=== PATIENT | male | born 1960 | race Caucasian/White ===

== ENCOUNTER 2016-08-10 15:29 | Emergency (ER) | payer MEDICARE, OTHER ==
[2016-08-10 16:03] LABS: Hematocrit 33.6 % (42.0-52.0); Hemoglobin 11.1 gm/dL (13.5-18.0); Mean Cell Volume 91.8 fl (78-100); Mean Corpuscular Hemoglobin 30.3 pg (27-31); Neutrophil # 4.6 K/mm3 (1.3-6.0); Neutrophil % 60.3 % (42-75.0); Platelet Count 148 K/mm3 (150-450); Red Blood Count 3.66 M/mm3 (4.7-6.0); Red Cell Distribution Width 14.1 % (11.5-14.0); White Blood Count 7.6 K/mm3 (4.0-10.5)
[2016-08-10 16:12] LABS: Prothrombin Time (Patient) 10.8 Seconds (9.4-11.4)
[2016-08-10 16:14] LABS: INR 1.04 INR (0.90-1.10); Partial Thrombolplastin Time 28.7 Seconds (24-32)
[2016-08-10] MEDS ORDERED: ACETAMINOPHEN 500 MG TABLET PO ONE (16:14)
--- NOTE | 2016-08-10 16:15 | ERNOTE ---
Chest Pain/Cardiac HPI Chief Complaint: Chest Pain Time Seen by Provider: 08/10/16 16:00 Source: patient Exam Limitations: no limitations Immunizations: IMMUNIZATION HX Immunizations Up to Date Yes History of Influenza Vaccine No Hx Pneumococcal Vaccination No Allergies/Adverse Reactions: Allergies No Known Allergies Allergy (Verified 08/10/16 15:37) Home Medications: HOME MEDICATIONS Acetaminophen [Tylenol] 1,000 mg PO Q6H PRN 05/05/16 [Last Taken Unknown] Albuterol Sulfate/Ipratropium [Duoneb 2.5-0.5MG/3ML Soln] 3 ml IH QID PRN [Last Taken Unknown] Allopurinol [Zyloprim] 200 mg PO DAILY 05/05/16 [Last Taken Unknown] Aspirin [Aspirin Enteric Coated] 325 mg PO DAILY 05/05/16 [Last Taken Unknown] Cholecalciferol (Vitamin D3) [Vitamin D3] 2,000 unit PO DAILY 05/05/16 [Last Taken Unknown] Ezetimibe [Zetia] 10 mg PO DAILY 05/05/16 [Last Taken Unknown] Famotidine 20 mg PO BID 05/05/16 [Last Taken Unknown] Hydrophilic Ointment [Aquaphilic Ointment] 1 appl TP DAILY 05/05/16 [Last Taken Unknown] Insul NPH Hu Rec/Ins Rg Hu Rec [Novolin 70/30] 40 units SQ QAM 05/05/16 [Last Taken Unknown] Insul NPH Hu Rec/Ins Rg Hu Rec [Novolin 70/30] 40 units SQ QPM 05/05/16 [Last Taken Unknown] Lisinopril [Zestril] 40 mg PO DAILY 05/05/16 [Last Taken Unknown] Metoprolol Tartrate [Lopressor] 200 mg PO BID 05/05/16 [Last Taken Unknown] Multivitamins [Multivitamin Rika] 1 cap PO DAILY 05/05/16 [Last Taken Unknown] Mupirocin [Bactroban] 1 appl TP DAILY 05/05/16 [Last Taken Unknown] Nystatin [Mycostatin Powder] 1 appl TP BID 05/05/16 [Last Taken Unknown] Ranitidine HCl [Zantac] 150 mg PO BID 05/05/16 [Last Taken Unknown] buPROPion HCL [Wellbutrin Xl] 150 mg PO DAILY 10/18/16 [Last Taken Unknown] guaiFENesin [Mucinex] 600 mg PO BID PRN 05/05/16 [Last Taken Unknown] Furosemide [Lasix] 80 mg PO DAILY #30 tablet 05/06/16 [Last Taken Unknown] Narrative: Patient started to have chest pain yesterday, describes the pain as lower sternal and on right lower ribs anteriorly, worse with deep breath and movement , no radiation, no other associated symptoms, denies any injury or significant cough. The patient has an extensive past medical history and was hospitalized a couple of months ago to CHF Date (Duration): 08/09/16 Time (Timing): 16:00 Timing: constant Severity/Quality: sharp Location: central Chest Pain Radiation: no radiation Activities at Onset: none Modifying Factors - Improves: Present: rest Modifying Factors - Worsens: Present: breathing, movement Nitro Today/Relief: no nitro taken today Aspirin Treatment Today: 325 mg x 1 Associated Symptoms: Absent: headache, dizziness, shortness of breath, diaphoresis, fever/chills, heartburn Review of Systems - Review of Systems Constitutional: Absent: recent illness, fever ENT: Absent: pulling on ears Respiratory: Absent: shortness of breath Cardiology: Present: See HPI Gastrointestinal/Abdominal: Absent: nausea, vomiting, diarrhea Musculoskeletal: Present: no symptoms reported Neurological: Absent: headache - Patient's Past Medical History Patient History - Medical: Diabetes Type 2, Depression, GERD, Obesity, Renal Disease Patient History - Cardiac/Respiratory: CHF, COPD, Hypertension, Hyperlipidemia, CPAP/BiPAP Home Use - needs refit, Sleep Apnea Patient History - Cancer: No Hx of Cancer Patient History - Surgical Procedures: Total Knee Replacement - Family History Mother Family History - Medical: , Diabetes Type 2 Family History - Cardiac/Respiratory: CVA/Stroke, Myocardial Infarction Father Family History - Medical: Family History - Cardiac/Respiratory: Coronary Heart Disease, Myocardial Infarction Sister Family History - Medical: Diabetes Type 2 Insulin Dependent Family History - Cardiac/Respiratory: Other Brother Family History - Cardiac/Respiratory: Myocardial Infarction - Social History Living Situations: alone Does anyone smoke in the home?: No Alcohol Use: none Drug Use: none Physical Exam - Physical Exam General Appearance: Present: wd/wn, alert, no apparent distress, obese - morbidly Eye Exam: Normal inspection: bilateral Ears, Nose, Throat: Present: normal ENT inspection Respiratory: Present: no respiratory distress, normal breath sounds, lungs clear , chest tenderness - parasternal and right anterior lower ribs Cardiovascular/Chest: Present: regular rate, rhythm, no murmur Gastrointestinal/Abdominal: Present: normal bowel sounds, nontender, nondistended, soft Extremity Exam: Present: other - chronic stasis dermatitis and edema Neurological Exam: Present: alert, oriented, normal mood/affect Skin Exam: Present: normal color, warm/dry ED Progress - Results and Orders Patient's Lab Results:: I have reviewed the patient's lab results. - Vital Signs Patient's Vital Signs:: I have reviewed the patient's vital signs. Vital Signs: Vital Signs 08/10/16 08/10/16 15:32 15:39 Pulse Rate 51 L 51 L Respiratory 13 10 L Rate O2 Sat by Pulse 97 Oximetry - EKG EKG: NSR - sinusbrady, no acute changes EKG read: Interp. by me - X-Ray X-Ray #1 X-Ray: chest - chronic stable changes Interpretation: Reviewed by me - Progress/Reassessment Chief Complaint: Chest Pain Progress Note-Subjective: 08/10/16 16:43 pain better, discussed results and need for close follow up as worsening renal failure Departure - Departure Clinical Impression: Acute chest wall pain, Acute on chronic renal failure Disposition: Home self-care Condition: Fair Instructions: Chest Wall Pain, [id number], Chronic Kidney Disease, Easy-to- Read Additional Instructions: stop the lasix have your blood work rechecked in two days Referrals: Katiuska Montoya DO [Staff Physician] - 08/17/16 10:45 am
[2016-08-10 16:20] LABS: ALT 37 U/L (19-67); AST 17 U/L (0-48); Albumin * 3.1 gm/dl (3.4-5.0); Alkaline Phosphatase * 109 U/L (50-170); Anion Gap 15.9 mmol/L (6.8-13.8); BUN/Creatinine Ratio 28.9 (9.0-21.6); Bilirubin, Total 0.4 mg/dL (0.0-1.1); Ca. Corrected For Albumin 9.4 mg/dL (8.4-10.2); Carbon Dioxide 23.8 mmol/L (24-32.6); Chloride 103 mmol/L (97-106); Glucose * 81 mg/dL (70-110); Potassium 4.7 mmol/L (3.4-4.6); Sodium 138 mmol/L (132-142); Total Protein 7.4 gm/dL (6.2-8.2)
[2016-08-10 16:24] LABS: Blood Urea Nitrogen 103 mg/dL (6-23)
[2016-08-10 16:25] LABS: Troponin I Less than 0.017 ng/ml (0.00-0.10)
[2016-08-10 16:32] VITALS: BP 177/84
== END 2016-08-10 17:10 | disposition home or self-care (01) ==
LOC: ER 15:29
DX: R07.89 Other chest pain (principal); N17.9 Acute kidney failure, unspecified; N18.9 Chronic kidney disease, unspecified

== ENCOUNTER 2016-08-21 17:50 | Inpatient (IN) | payer MEDICARE, OTHER ==
[2016-08-21] MEDS ORDERED: NITROGLYCERIN 0.4 MG/TAB BTL SL ONE ×2 (18:26→18:35)
--- NOTE | 2016-08-21 18:34 | ERNOTE ---
Chest Pain/Cardiac HPI Chief Complaint: Chest Pain Time Seen by Provider: 08/21/16 18:18 Source: patient Exam Limitations: no limitations Immunizations: IMMUNIZATION HX Immunizations Up to Date Yes History of Influenza Vaccine No Hx Pneumococcal Vaccination No Allergies/Adverse Reactions: Allergies No Known Allergies Allergy (Verified 08/10/16 15:37) Home Medications: HOME MEDICATIONS Acetaminophen [Tylenol] 1,000 mg PO Q6H PRN 05/05/16 [Last Taken Unknown] Albuterol Sulfate/Ipratropium [Duoneb 2.5-0.5MG/3ML Soln] 3 ml IH QID PRN [Last Taken Unknown] Allopurinol [Zyloprim] 200 mg PO DAILY 05/05/16 [Last Taken Unknown] Aspirin [Aspirin Enteric Coated] 325 mg PO DAILY 05/05/16 [Last Taken Unknown] Cholecalciferol (Vitamin D3) [Vitamin D3] 2,000 unit PO DAILY 05/05/16 [Last Taken Unknown] Ezetimibe [Zetia] 10 mg PO DAILY 05/05/16 [Last Taken Unknown] Famotidine 20 mg PO BID 05/05/16 [Last Taken Unknown] Hydrophilic Ointment [Aquaphilic Ointment] 1 appl TP DAILY 05/05/16 [Last Taken Unknown] Insul NPH Hu Rec/Ins Rg Hu Rec [Novolin 70/30] 40 units SQ QAM 05/05/16 [Last Taken Unknown] Insul NPH Hu Rec/Ins Rg Hu Rec [Novolin 70/30] 40 units SQ QPM 05/05/16 [Last Taken Unknown] Lisinopril [Zestril] 40 mg PO DAILY 05/05/16 [Last Taken Unknown] Metoprolol Tartrate [Lopressor] 200 mg PO BID 05/05/16 [Last Taken Unknown] Multivitamins [Multivitamin Rika] 1 cap PO DAILY 05/05/16 [Last Taken Unknown] Mupirocin [Bactroban] 1 appl TP DAILY 05/05/16 [Last Taken Unknown] Nystatin [Mycostatin Powder] 1 appl TP BID 05/05/16 [Last Taken Unknown] Ranitidine HCl [Zantac] 150 mg PO BID 05/05/16 [Last Taken Unknown] buPROPion HCL [Wellbutrin Xl] 150 mg PO DAILY 10/18/16 [Last Taken Unknown] guaiFENesin [Mucinex] 600 mg PO BID PRN 05/05/16 [Last Taken Unknown] Furosemide [Lasix] 80 mg PO DAILY #30 tablet 05/06/16 [Last Taken Unknown] Narrative: Patient is coming today for chest pain. He was seen in the ER for right sided pain that seemed to be chest wall pain on 08/10/16, the pain resolved, he has stopped his lasix for worsening renal failure was restarted by his PCP a few days later. this afternoon he was sitting watching TV when he started to have chest/ epigastric pressure like pain 11/25, slight relieve with nitro in the ambulance, currently 10/26 Date (Duration): 08/21/16 Time (Timing): 17:00 Timing: constant Severity/Quality: pressure Location: epigastric Chest Pain Radiation: no radiation Activities at Onset: none Modifying Factors - Improves: Present: nitroglycerin Modifying Factors - Worsens: Present: nothing Nitro Today/Relief: 0.4 mg x 1 Prior Chest Pain/Cardiac Workup: Reports: prior chest pain - lateral Prior Treatment: Reports: recently seen. Denies: currently on antibiotics Review of Systems - Review of Systems Constitutional: Absent: recent illness, fever Respiratory: Absent: shortness of breath Cardiology: Present: See HPI Gastrointestinal/Abdominal: Absent: nausea, vomiting, abdominal pain Genitourinary: Present: no symptoms reported Neurological: Absent: headache - Patient's Past Medical History Patient History - Medical: Diabetes Type 2, Depression, GERD, Obesity, Renal Disease Patient History - Cardiac/Respiratory: CHF, COPD, Hypertension, Hyperlipidemia Patient History - Cancer: No Hx of Cancer Patient History - Surgical Procedures: Total Knee Replacement Patient History - Other: None - Family History Mother Family History - Medical: , Diabetes Type 2 Family History - Cardiac/Respiratory: CVA/Stroke, Myocardial Infarction Father Family History - Medical: Family History - Cardiac/Respiratory: Coronary Heart Disease, Myocardial Infarction Sister Family History - Medical: Diabetes Type 2 Insulin Dependent Family History - Cardiac/Respiratory: Other Brother Family History - Cardiac/Respiratory: Myocardial Infarction - Social History Living Situations: alone Abuse History: No History of abuse Psych History: Hx of Depression Does anyone smoke in the home?: No Alcohol Use: none Drug Use: none - Immunizations Immunizations Up to Date: Yes Hx Pneumococcal Vaccination: No History of Influenza Vaccine: No Physical Exam - Physical Exam General Appearance: Present: wd/wn, alert, no apparent distress Eye Exam: Normal inspection: bilateral Ears, Nose, Throat: Present: normal pharynx Respiratory: Present: no respiratory distress, normal breath sounds, chest nontender, lungs clear Cardiovascular/Chest: Present: regular rate, rhythm, no murmur Gastrointestinal/Abdominal: Present: normal bowel sounds, nondistended, soft, tenderness - epigastric Neurological Exam: Present: alert, oriented Skin Exam: Present: normal color, warm/dry ED Progress - Results and Orders Patient's Lab Results:: I have reviewed the patient's lab results. - Vital Signs Patient's Vital Signs:: I have reviewed the patient's vital signs. Vital Signs: Vital Signs 08/21/16 08/21/16 08/21/16 17:52 17:59 18:00 Temperature 35.7 C L Pulse Rate 52 L 50 L 51 L Respiratory 10 L 14 Rate Blood Pressure 139/65 152/66 O2 Sat by Pulse 98 99 Oximetry - EKG EKG: NSR - sinus bradycardia, unchanged from - 08/10/16 EKG read: Interp. by me - Progress/Reassessment Chief Complaint: Chest Pain Progress Note-Subjective: 08/21/16 19:51 chest pain better, but not completely resolved, discussed test result and limitation of normal test to rule out CAD, offered admission, patient agreed 08/21/16 19:59 discussed with Becca Frias ([employer] hospitalist), okay to admit patient for chest pain observation Departure - Departure Clinical Impression: Chest pain Qualifiers: Chest pain type: unspecified Qualified Code(s): R07.9 - Chest pain, unspecified Disposition: [facility] Condition: Fair
[2016-08-21 19:02] LABS: Hematocrit 32.4 % (42.0-52.0); Hemoglobin 10.6 gm/dL (13.5-18.0); Mean Cell Volume 92.3 fl (78-100); Mean Corpuscular Hemoglobin 30.2 pg (27-31); Mean Corpuscular Hgb Conc 32.7 g/dl (32-36); Mean Platelet Volume 10.6 fl (6.0-9.5); Neutrophil # 4.5 K/mm3 (1.3-6.0); Platelet Count 154 K/mm3 (150-450); Red Blood Count 3.51 M/mm3 (4.7-6.0); Red Cell Distribution Width 14.4 % (11.5-14.0); White Blood Count 6.9 K/mm3 (4.0-10.5)
[2016-08-21 19:29] LABS: ALT 69 U/L (19-67); AST 92 U/L (0-48); Albumin * 2.8 gm/dl (3.4-5.0); Alkaline Phosphatase * 134 U/L (50-170); Amylase * 36 U/L (25-115); Anion Gap 14.7 mmol/L (6.8-13.8); BUN/Creatinine Ratio 24.1 (9.0-21.6); Bilirubin, Total 0.4 mg/dL (0.0-1.1); Blood Urea Nitrogen 78 mg/dL (6-23); Ca. Corrected For Albumin 9.2 mg/dL (8.4-10.2); Calcium * 8.6 mg/dL (7.9-10.9); Carbon Dioxide 23.9 mmol/L (24-32.6); Chloride 107 mmol/L (97-106); Glucose * 64 mg/dL (70-110); Lipase 103 U/L (73-393); Potassium 4.6 mmol/L (3.4-4.6); Sodium 141 mmol/L (132-142); Total Protein 6.8 gm/dL (6.2-8.2)
[2016-08-21 19:42] LABS: Troponin I Less than 0.017 ng/ml (0.00-0.10)
[2016-08-21] MEDS ORDERED: NITROGLYCERIN 0.4 MG/TAB BTL SL PRN (20:10)
[2016-08-21] MEDS ORDERED: ATORVASTATIN CALCIUM 40 MG TABLET PO STA (20:10)
[2016-08-21] MEDS ORDERED: ATORVASTATIN CALCIUM 40 MG TABLET ONE (20:29)
--- NOTE | 2016-08-21 21:41 | HP ---
Chief Complaint - Chief Complaint Date of Service: 08/21/16 Time of Service: 21:42 Chief Complaint: chest pain r/o History of Present Illness: Patient is a 56 year old male who presented to [facility] ER this evening with complaints of chest pain. His PMH is significant for: CMP, CHF, renal failure, sleep apnea, and obesity. He was recently seen in the ER for right sided chest wall pain on 08/10/16, the pain resolved in the ER and he was DC home with instructions to hold his lasix for worsening renal failure, this has since then been restarted. This afternoon he was sitting watching TV when he developed chest/epigastric which he rates a 6/10 that was sharp stabbing, non-radiating, which was exacerbated with inhalation and supine position. Nothing made the pain better. He took 650mg tylenol and one ASA prior to coming in which he state relieved the pain a little. He received 1 SL nitro in the ambulance which he states did not help relieve the pain. Upon arrival to the ER his pain was a 4 /10. Laboratory findings in the ER were as followed: Gluc 67, BUN/Creat 78/3.23 , AST 92, ALT 69, WBC 6.9, h/h 10.6/32.4, Na+141, K+ 4.6. Negative troponin. EKG sinus maddie. He will be admitted overnight to observation for acute chest pain rule out. - Patient's Past Medical History Patient History - Medical: Diabetes Type 2, Depression, GERD, Obesity, Renal Disease Patient History - Cardiac/Respiratory: CHF, COPD, Hypertension, Hyperlipidemia, Sleep Apnea Patient History - Cancer: No Hx of Cancer Patient History - Surgical Procedures: Total Knee Replacement - right Patient History - Other: None - Family History Mother Family History - Medical: , Diabetes Type 2 Family History - Cardiac/Respiratory: CVA/Stroke, Myocardial Infarction Family History - Cancer: Other Father Family History - Medical: Family History - Cardiac/Respiratory: Coronary Heart Disease, Myocardial Infarction Family History - Cancer: No pertinent family hx Sister Family History - Medical: Diabetes Type 2 Insulin Dependent Family History - Cardiac/Respiratory: Other Brother Family History - Cardiac/Respiratory: Myocardial Infarction - Social History Living Situations: alone Abuse History: No History of abuse Psych History: Hx of Depression Does anyone smoke in the home?: No Have you smoked in the past 12 months: No Do you dip or chew tobacco: No Alcohol Use: none Drug Use: none - Immunizations Immunizations Up to Date: Yes Hx Pneumococcal Vaccination: No History of Influenza Vaccine: No Review Of Systems (GEN) - Review of Systems Generalized/Overall Review: Present: No Symptoms Reported EENTM: Present: No Symptoms Reported Respiratory: Present: Orthopnea, Wheezing Cardiac: Present: Edema - chronic bilateral lower extremity swelling Abdominal: Present: Nausea Genitourinary: Present: No Symptoms Reported Musculoskeletal: Present: No Symptoms Reported Neurological: Present: No Symptoms Reported Skin: Present: No Symptoms Reported Endocrine: Present: No Symptoms Reported Immunizations: IMMUNIZATION HX Immunizations Up to Date Yes History of Influenza Vaccine No Hx Pneumococcal Vaccination No Allergies/Adverse Reactions: Allergies Allergy/AdvReac Type Severity Reaction Status Date / Time No Known Allergies Allergy Verified 08/10/16 15:37 Home Medications: HOME MEDICATIONS Acetaminophen [Tylenol] 1,000 mg PO Q6H PRN 05/05/16 [Last Taken Unknown] Albuterol Sulfate/Ipratropium [Duoneb 2.5-0.5MG/3ML Soln] 3 ml IH QID PRN [Last Taken Unknown] Allopurinol [Zyloprim] 200 mg PO DAILY 05/05/16 [Last Taken Unknown] Aspirin [Aspirin Enteric Coated] 325 mg PO DAILY 05/05/16 [Last Taken Unknown] Cholecalciferol (Vitamin D3) [Vitamin D3] 2,000 unit PO DAILY 05/05/16 [Last Taken Unknown] Ezetimibe [Zetia] 10 mg PO DAILY 05/05/16 [Last Taken Unknown] Famotidine 20 mg PO BID 05/05/16 [Last Taken Unknown] Hydrophilic Ointment [Aquaphilic Ointment] 1 appl TP DAILY 05/05/16 [Last Taken Unknown] Insul NPH Hu Rec/Ins Rg Hu Rec [Novolin 70/30] 40 units SQ QAM 05/05/16 [Last Taken Unknown] Insul NPH Hu Rec/Ins Rg Hu Rec [Novolin 70/30] 40 units SQ QPM 05/05/16 [Last Taken Unknown] Lisinopril [Zestril] 40 mg PO DAILY 05/05/16 [Last Taken Unknown] Metoprolol Tartrate [Lopressor] 200 mg PO BID 05/05/16 [Last Taken Unknown] Multivitamins [Multivitamin Rika] 1 cap PO DAILY 05/05/16 [Last Taken Unknown] Mupirocin [Bactroban] 1 appl TP DAILY 05/05/16 [Last Taken Unknown] Nystatin [Mycostatin Powder] 1 appl TP BID 05/05/16 [Last Taken Unknown] Ranitidine HCl [Zantac] 150 mg PO BID 05/05/16 [Last Taken Unknown] buPROPion HCL [Wellbutrin Xl] 150 mg PO DAILY 05/05/16 [Last Taken Unknown] guaiFENesin [Mucinex] 600 mg PO BID PRN 05/05/16 [Last Taken Unknown] Furosemide [Lasix] 80 mg PO DAILY #30 tablet 05/06/16 [Last Taken Unknown] Exam - Exam Vital Signs: Vital Signs - Last Taken Temp 35.7 C L 08/21/16 18:52 Pulse 52 L 08/21/16 20:20 Resp 16 08/21/16 20:20 BP 149/54 08/21/16 20:20 Pulse Ox 96 RA 08/21/16 20:20 Constitutional: Present: Alert, Oriented x3, Cooperative, No distress, Morbidly obese ENT Exam: Present: hearing grossly normal Eye Exam: bilateral eye: normal inspection, PERRL Respiratory: Present: no respiratory distress, no accessory muscle use, decreased breath sounds Cardiovascular/Chest: Present: normal peripheral pulses, no chest tenderness, no murmur, bradycardia Peripheral Pulses: dorsalis-pedis (R): 2+, dorsalis-pedis (L): 2+, radial (R): 2 +, radial (L): 2+ Abdomen: Present: Normal bowel sounds, soft, nontender, nondistended, obese Extremity: Present: normal range of motion, non-tender, no calf tenderness, normal capillary refill, pedal edema, swelling, other - chronic bilateral lower extremity discoloration and swelling Skin Exam: Present: normal color, warm/dry, no cyanosis Lymphatic: Present: no adenopathy Neurologic: Present: no motor/sensory deficits, alert, normal mood/affect, oriented x 3 Appearance: Present: appropriate appearance, appropriate insight, no memory impairment Eye contact: Present: cooperative, good eye contact, normal speech Thoughts: Present: normal thought pattern, no apparent hallucination Diagnostic Studies: Laboratory Results Laboratory Tests 05/04/16 05/04/16 05/04/16 21:12 21:12 21:12 WBC 9.0 Hgb 10.0 L Hct 31.6 L Plt Count 173 Neutrophils % Sodium 139 Potassium 4.8 H Chloride 106 Anion Gap BUN 49 H Creatinine 2.75 H Est GFR (Non-Af Amer) Random Glucose 120 H AST ALT Alkaline Phosphatase Troponin I B-Natriuretic Peptide 1633 H Amylase Lipase 08/21/16 08/21/16 19:17 19:17 WBC 6.9 Hgb 10.6 L Hct 32.4 L Plt Count 154 Neutrophils % 65.0 Sodium 141 Potassium 4.6 Chloride 107 H Anion Gap 14.7 H BUN 78 H Creatinine 3.23 H Est GFR (Non-Af Amer) 21 L Random Glucose AST 92 H ALT 69 H Alkaline Phosphatase 134 Troponin I Less than 0.017 B-Natriuretic Peptide Amylase 36 Lipase 103 Assessment/Plan - Assessment/Plan (1) Acute chest wall pain Assessment: Pt with mid epigastric chest pain, all cardiac workup thus far has been negative , suspect epigastric etiology versus cardiac. No relief with nitroglycerin. Will monitor on telemetry overnight, repeat troponin in 6 hours, obtain chest xray. -Telemetry -Chest xray -Repeat troponin @0200 Problem: Acute (2) Congestive heart failure (CHF) Assessment: Chronic. Pt on 80mg of lasix daily, comes in with elevated BUN/Creat at 78/3.23- ->08/10 103/3.56-->08/14 101/3.37. Will continue with this dose as he is continuing to improve. BLE with chronic swelling, continue to wrap and elevate. Check BNP and obtain chest xray. -BNP -Chest xray -Strict i/o -Daily wt -CMP in am Problem: Chronic Qualifiers: Congestive heart failure type: unspecified congestive heart failure type (3) Diabetes type 2, controlled Assessment: BS low at 67 on admission labs, 81 upon arrival to floor. Hold insulin this evening. Resume insulin in the am once pt is adequately taking PO food. -Consistent carb diet -Accu check ac/hs -Hold insulin this evening -Resume insulin orders in the am if pt taking PO Problem: Chronic Qualifiers: Diabetes mellitus complication status: with kidney complications Diabetes mellitus complication detail: with microalbuminuria Diabetes mellitus buttermaker continuous churn insulin use: with buttermaker continuous churn use Qualified Code(s): E11.29 - Type 2 diabetes mellitus with other diabetic kidney complication; R80.9 - Proteinuria, unspecified; Z79.4 - halfway (current) use of insulin (4) GERD (gastroesophageal reflux disease) Assessment: Pt pain free upon examination. Will continue with home medication, if pain returns will try an antacid to see if this resolves the pain. -Zantac 150mg BID -Famotadine 20mg BID Problem: Chronic Qualifiers: Esophagitis presence: esophagitis presence not specified Qualified Code(s) : K21.9 - Gastro-esophageal reflux disease without esophagitis (5) HTN (hypertension) Assessment: Chronic. Pt HR in the low 50's, BP 140/60...on scheduled 200mg lopressor BID. Will monitor HR and VS overnight and resume home medications in the am. Might need to adjust dose if pt remains bradycardic. -VS Q4H -Telemetry -Resume metoprolol in the am if HR <60 -Lisinopril 40mg daily Problem: Chronic (6) NORRIS (obstructive sleep apnea) Assessment: Chronic, pt is not compliant with cpap. Problem: Chronic (7) COPD (chronic obstructive pulmonary disease) Problem: Chronic Qualifiers: COPD type: unspecified COPD Qualified Code(s): J44.9 - Chronic obstructive pulmonary disease, unspecified
[2016-08-22 04:53] LABS: Hematocrit 35.8 % (42.0-52.0); Hemoglobin 11.5 gm/dL (13.5-18.0); Mean Cell Volume 92.7 fl (78-100); Mean Corpuscular Hemoglobin 29.8 pg (27-31); Mean Corpuscular Hgb Conc 32.1 g/dl (32-36); Mean Platelet Volume 11.8 fl (6.0-9.5); Neutrophil # 4.8 K/mm3 (1.3-6.0); Platelet Count 130 K/mm3 (150-450); Red Blood Count 3.86 M/mm3 (4.7-6.0); Red Cell Distribution Width 14.2 % (11.5-14.0); White Blood Count 6.4 K/mm3 (4.0-10.5)
[2016-08-22 05:11] LABS: Albumin * 2.7 gm/dl (3.4-5.0); Anion Gap 15.1 mmol/L (6.8-13.8); BUN/Creatinine Ratio 24.8 (9.0-21.6); Bilirubin, Total 1.8 mg/dL (0.0-1.1); Ca. Corrected For Albumin 9.7 mg/dL (8.4-10.2); Carbon Dioxide 22.4 mmol/L (24-32.6); Potassium 5.5 mmol/L (3.4-4.6); Total Protein 7.2 gm/dL (6.2-8.2)
[2016-08-22] MEDS ORDERED: ALBUTEROL SULFATE/IPRATROPIUM 3 ML NEBU IH PRN (07:09)
[2016-08-22] MEDS: buPROPion HCL 150 MG TAB.SR.24H PO SCH (08:09)
[2016-08-22] MEDS: FUROSEMIDE 80 MG TABLET PO SCH (08:09)
[2016-08-22] MEDS: FAMOTIDINE 20 MG TABLET PO SCH ×2 (08:09→21:00)
[2016-08-22] MEDS: MULTIVITAMINS 1 CAP CAPSULE PO SCH (08:09)
[2016-08-22] MEDS: METOPROLOL TARTRATE 100 MG TABLET PO SCH ×2 (08:09→20:59)
[2016-08-22] MEDS: INSUL NPH HU REC/INS RG HU REC 100 UNITS/ML VIAL SC SCH ×2 (08:09→17:29)
[2016-08-22] MEDS: ALLOPURINOL 100 MG TABLET PO SCH (08:09)
--- NOTE | 2016-08-22 15:00 | PN ---
Subjective - Date and Time Seen Date: 08/22/16 Time: 07:00 Subjective Narrative: Patient seen and examined at bedside. Patient resting comfortably in bed this AM. He states he last ate around 0500 this AM. Patient continues to have RUQ and epigastric pain. Admits to some nausea but denies vomiting or change in BMs. Objective - Review of Systems Generalized/Overall Review: Denies: Chills, Fever EENTM: Reports: No Symptoms Reported Respiratory: Reports: No Symptoms Reported, Shortness of Breath - chronic SOB especially with activity Cardiac: Reports: Edema - chronic. Denies: Chest Pain Abdominal: Reports: Nausea, Abdominal Pain. Denies: Vomiting, Hematemesis, Constipation, Diarrhea, Melena, Bright blood from rectum Genitourinary Symptoms: Reports: No Symptoms Reported Musculoskeletal Complaints: Reports: Other - Chronic pain Neurological: Reports: No Symptoms Reported Skin: Reports: No Symptoms Reported Endocrine: Reports: No Symptoms Reported Misc: All systems neg except as marked - Vitals Vitals: Last Vital Signs Temp 37.3 C 08/22/16 11:33 Pulse 67 08/22/16 11:33 Resp 20 08/22/16 11:33 BP 168/73 08/22/16 11:33 Pulse Ox 98 08/22/16 11:33 - Exam Constitutional: Present: Alert, Oriented x3, Cooperative, No distress, Morbidly obese ENT Exam: Present: hearing grossly normal, moist mucous membranes Neck: Present: other - Difficult to thoroughly assess secondary to body habitus but no lymphadenopathy, masses or nodules noted on exam Respiratory: Present: other - Difficult to thoroughly assess secondary to body habitus but no crackles, rhonchi or wheezes appreciated Cardiovascular/Chest: Present: other - Diminished heart sounds secondary to body habitus so difficult to thoroughly assess; however, RRR and no murmurs noted. Chronic LE edema bilaterally Abdomen: Present: soft, no rebound tenderness, obese, other - Abdominal tenderness with palpation diffusely but most severe tenderness per patient report in RUQ and epigastric area.. Absent: rigidity Extremity: Present: other - Chronic LE skin changes secondary to chronic venous insufficiency, LE edema present bilaterally Neurologic: Present: no motor/sensory deficits, alert, normal mood/affect, oriented x 3 Eye contact: Present: cooperative, good eye contact Thoughts: Present: normal thought pattern, no apparent hallucination Assessment/Plan Plan Narrative: LFTs rising. Order placed for NPO. RUQ US ordered for further evaluation. Await results. Admit to inpatient. Discontinue telemetry. Start heparin for VTE ppx. - Problems/Diagnosis (1) Abdominal pain Problem: Acute (2) RUQ abdominal pain Problem: Acute (3) Epigastric abdominal pain Problem: Acute (4) Elevated LFTs Problem: Acute
[2016-08-22] MEDS: LISINOPRIL 40 MG TABLET PO SCH (17:29)
[2016-08-22] MEDS: HEPARIN SODIUM,PORCINE 5,000 UNITS/ML VIAL SC SCH ×2 (17:30→22:20)
[2016-08-23 05:00] LABS: Hematocrit 34.1 % (42.0-52.0); Hemoglobin 11.2 gm/dL (13.5-18.0); Mean Cell Volume 91.9 fl (78-100); Mean Corpuscular Hemoglobin 30.2 pg (27-31); Mean Corpuscular Hgb Conc 32.8 g/dl (32-36); Mean Platelet Volume 11.9 fl (6.0-9.5); Neutrophil # 3.2 K/mm3 (1.3-6.0); Neutrophil % 62.8 % (42-75.0); Platelet Count 132 K/mm3 (150-450); Red Blood Count 3.71 M/mm3 (4.7-6.0); Red Cell Distribution Width 14.3 % (11.5-14.0)
[2016-08-23 05:16] LABS: Albumin * 2.7 gm/dl (3.4-5.0); Anion Gap 14.4 mmol/L (6.8-13.8); BUN/Creatinine Ratio 20.5 (9.0-21.6); Bilirubin Direct 1.1 mg/dL (0.0-0.3); Bilirubin, Total 1.7 mg/dL (0.0-1.1); Bilirubin,Indirect 0.6 mg/dL (0.1-0.7); Calcium * 8.9 mg/dL (7.9-10.9); Carbon Dioxide 25.7 mmol/L (24-32.6); Estimated Creat Clear 26.6; Potassium 4.1 mmol/L (3.4-4.6); Total Protein 7.1 gm/dL (6.2-8.2)
[2016-08-23] MEDS: PANTOPRAZOLE SODIUM 40 MG TABLET.EC PO SCH (07:00)
[2016-08-23] MEDS: HEPARIN SODIUM,PORCINE 5,000 UNITS/ML VIAL SC SCH ×3 (07:01→22:09)
[2016-08-23] MEDS: MULTIVITAMINS 1 CAP CAPSULE PO SCH (10:18)
[2016-08-23] MEDS: ALLOPURINOL 100 MG TABLET PO SCH (10:18)
[2016-08-23] MEDS: FAMOTIDINE 20 MG TABLET PO SCH ×2 (10:18→20:39)
[2016-08-23] MEDS: METOPROLOL TARTRATE 100 MG TABLET PO SCH ×2 (10:18→20:37)
[2016-08-23] MEDS: FUROSEMIDE 80 MG TABLET PO SCH (10:18)
[2016-08-23] MEDS: buPROPion HCL 150 MG TAB.SR.24H PO SCH (10:18)
[2016-08-23] MEDS: INSUL NPH HU REC/INS RG HU REC 100 UNITS/ML VIAL SC SCH ×2 (10:19→17:35)
--- NOTE | 2016-08-23 12:49 | PN ---
Subjective - Date and Time Seen Date: 08/23/16 Time: 10:00 Subjective Narrative: Patient seen and examined at bedside. Patient resting comfortably in the chair this AM. The patient states he feels well and his abdominal pain has completely resolved. Objective - Review of Systems Generalized/Overall Review: Reports: No Symptoms Reported EENTM: Reports: No Symptoms Reported Respiratory: Reports: Shortness of Breath - chronic Cardiac: Reports: Edema - chronic LE edema Abdominal: Reports: No Symptoms Reported Genitourinary Symptoms: Reports: No Symptoms Reported Musculoskeletal Complaints: Reports: Other - chronic pain Neurological: Reports: No Symptoms Reported Skin: Reports: No Symptoms Reported Endocrine: Reports: No Symptoms Reported Misc: All systems neg except as marked - Vitals Vitals: Last Vital Signs Temp 37.1 C 08/23/16 10:56 Pulse 56 L 08/23/16 10:56 Resp 20 08/23/16 10:56 BP 155/61 08/23/16 10:56 Pulse Ox 97 08/23/16 10:56 - Abnormal Lab Findings Abnormal Lab Findings: Abnormal Lab Results 08/23/16 08/23/16 Range/Units 04:55 04:55 RBC 3.71 L (4.7-6.0) M/mm3 Hgb 11.2 L (13.5-18.0) gm/dL Hct 34.1 L (42.0-52.0) % RDW 14.3 H (11.5-14.0) % Plt Count 132 L (150-450) K/mm3 MPV 11.9 H (6.0-9.5) fl Lymphocytes % 19.2 L (20-51) % Monocytes % 12.6 H (0.0-9) % Eosinophils % 4.2 H (0.0-3.0) % Lymphocytes # 1.0 L (1.5-3.5) k/mm3 Anion Gap 14.4 H (6.8-13.8) mmol/L BUN 63 H (6-23) mg/dL Creatinine 3.07 H (0.4-1.4) mg/dL Est GFR (Non-Af Amer) 23 L (60-130) mL/min Total Bilirubin 1.7 H (0.0-1.1) mg/dL Direct Bilirubin 1.1 H (0.0-0.3) mg/dL AST 628 H (0-48) U/L ALT 916 H (19-67) U/L Alkaline Phosphatase 482 H (50-170) U/L Albumin 2.7 L (3.4-5.0) gm/dl - Exam Constitutional: Present: Alert, Oriented x3, Cooperative, No distress, Morbidly obese ENT Exam: Present: hearing grossly normal, moist mucous membranes Respiratory: Present: no respiratory distress, no accessory muscle use, other - Difficult to thoroughly assess secondary to body habitus but no crackles, rhonchi or wheezes appreciated Cardiovascular/Chest: Present: other - Diminished heart sounds secondary to body habitus so difficult to thoroughly assess; however, RRR and no murmurs noted. Chronic bilateral LE edema. Abdomen: Present: soft, nontender, no rebound tenderness, obese. Absent: guarding, rigidity Extremity: Present: pedal edema, other - Chronic LE skin changes secondary to chronic venous stasis insufficiency. LE edema present bilaterally. Skin Exam: Present: normal color, warm/dry. Absent: jaundice Neurologic: Present: alert, normal mood/affect, oriented x 3 Eye contact: Present: cooperative, good eye contact Thoughts: Present: normal thought pattern, no apparent hallucination Assessment/Plan Plan Narrative: Liver panel from this AM shows increasing LFTs. RUQ US completed on 08.22.2016 showed cholelithiasis without evidence for cholecystitis, multiple mobile gallstones, no pericholecystyic fluid, negative Weiss's sign, no ductal dilation. I believe it is very likely that the patient passed a gallstone which caused the pain and elevated enzymes. However, since his pain has now resolved, it is likely the stone has completely passed. Hopefully his enzymes have peaked and will start to decline and return to normal. Although I believe this is the likely etiology, I have ordered additional work-up to be sure we are not missing another etiology. Work-up ordered includes: GGT, 5'-NT, PT, PTT, INR, acetaminophen level, acute hepatitis panel, KWAN, ASMA, ALKM and ceruloplasmin. - Problems/Diagnosis (1) Abdominal pain Problem: Acute (2) RUQ abdominal pain Problem: Acute (3) Epigastric abdominal pain Problem: Acute (4) Elevated LFTs Problem: Acute
[2016-08-23 13:35] LABS: Prothrombin Time (Patient) 11.8 Seconds (9.4-11.4)
[2016-08-23 13:36] LABS: INR 1.13 INR (0.90-1.10); Partial Thrombolplastin Time 28.2 Seconds (24-32)
[2016-08-23 13:39] LABS: ALT 749 U/L (19-67); AST 431 U/L (0-48); Albumin * 2.6 gm/dl (3.4-5.0); Alkaline Phosphatase * 445 U/L (50-170); Anion Gap 14.5 mmol/L (6.8-13.8); BUN/Creatinine Ratio 19.9 (9.0-21.6); Bilirubin Direct 0.7 mg/dL (0.0-0.3); Bilirubin,Indirect 0.3 mg/dL (0.1-0.7); Blood Urea Nitrogen 67 mg/dL (6-23); Calcium * 8.7 mg/dL (7.9-10.9); Carbon Dioxide 26.7 mmol/L (24-32.6); Chloride 104 mmol/L (97-106); Estimated Creat Clear 24.3; Glucose * 230 mg/dL (70-110); Potassium 4.2 mmol/L (3.4-4.6); Sodium 141 mmol/L (132-142); Total Protein 6.7 gm/dL (6.2-8.2)
[2016-08-23] MEDS: LISINOPRIL 40 MG TABLET PO SCH (17:33)
[2016-08-24 07:03] VITALS: BP 153/66
[2016-08-24 07:31] LABS: Albumin * 2.7 gm/dl (3.4-5.0); Anion Gap 15.3 mmol/L (6.8-13.8); Bilirubin Direct 0.3 mg/dL (0.0-0.3); Bilirubin, Total 0.7 mg/dL (0.0-1.1); Bilirubin,Indirect 0.4 mg/dL (0.1-0.7); Calcium * 8.5 mg/dL (7.9-10.9); Carbon Dioxide 25.3 mmol/L (24-32.6); Estimated Creat Clear 25.6; Potassium 4.6 mmol/L (3.4-4.6); Total Protein 6.1 gm/dL (6.2-8.2)
[2016-08-24] MEDS: PANTOPRAZOLE SODIUM 40 MG TABLET.EC PO SCH (07:36)
[2016-08-24] MEDS: HEPARIN SODIUM,PORCINE 5,000 UNITS/ML VIAL SC SCH (07:36)
[2016-08-24] MEDS: FAMOTIDINE 20 MG TABLET PO SCH (09:01)
[2016-08-24] MEDS: buPROPion HCL 150 MG TAB.SR.24H PO SCH (09:01)
[2016-08-24] MEDS: MULTIVITAMINS 1 CAP CAPSULE PO SCH (09:02)
[2016-08-24] MEDS: ALLOPURINOL 100 MG TABLET PO SCH (09:02)
[2016-08-24] MEDS: FUROSEMIDE 80 MG TABLET PO SCH (09:02)
[2016-08-24] MEDS: METOPROLOL TARTRATE 100 MG TABLET PO SCH (09:02)
[2016-08-24] MEDS: INSUL NPH HU REC/INS RG HU REC 100 UNITS/ML VIAL SC SCH (09:06)
--- NOTE | 2016-08-24 10:50 | DS ---
(1) Abdominal pain Problem: Resolved (2) RUQ abdominal pain Problem: Resolved (3) Epigastric abdominal pain Problem: Resolved (4) Elevated LFTs Diagnosis(s): Improving/trending down Problem: Acute (5) Choledocholithiasis Problem: Suspected Description of Stay: ADMISSION DATE: 08.21.2016 DISCHARGE DATE: 08.24.2016 ADMISSION HPI: Patient is a 56 year old male who presented to [facility] ER this evening with complaints of chest pain. His PMH is significant for: CMP, CHF, renal failure, sleep apnea, and obesity. He was recently seen in the ER for right sided chest wall pain on 08/10/16, the pain resolved in the ER and he was DC home with instructions to hold his lasix for worsening renal failure, this has since then been restarted. This afternoon he was sitting watching TV when he developed chest/epigastric which he rates a 6/10 that was sharp stabbing, non-radiating, which was exacerbated with inhalation and supine position. Nothing made the pain better. He took 650mg tylenol and one ASA prior to coming in which he state relieved the pain a little. He received 1 SL nitro in the ambulance which he states did not help relieve the pain. Upon arrival to the ER his pain was a 4 /10. Laboratory findings in the ER were as followed: Gluc 67, BUN/Creat 78/3.23 , AST 92, ALT 69, WBC 6.9, h/h 10.6/32.4, Na+141, K+ 4.6. Negative troponin. EKG sinus maddie. He will be admitted overnight to observation for acute chest pain rule out. HOSPITAL COURSE: Patient admitted for "chest pain" but after talking with Dre it was determined that he was actually having RUQ and epigastric abdominal pain. The AM on 08.22.2016, his liver panel showed elevated enzymes. Work-up included a RUQ US which was completed on 08.22.2016 and showed: cholelithiasis without evidence for cholecystitis, multiple mobile gallstones, no pericholecystyic fluid, negative Weiss's sign, no ductal dilation. His abdominal pain had completely resolved when I saw him the AM of 08.23.2016. I believe it is very likely that the patient passed a gallstone which caused the pain and elevated enzymes. After resolution of his pain, his liver enzymes began to improve and trend down. I discussed that this is the most likely etiology of his pain and that it is possible the pain will occur again in the future. We discussed possible cholecystectomy which he says he would be agreeable to. However, given his morbid obesity and extremely large body habitus, he would not be able to have this done here at [facility]. I will plan on referring the patient to the [facility] and discussing this further with Dre at his follow-up appointment with me. Patient discharged home in stable condition on 08.24.2016. Resume [facility] at discharge. FOLLOW-UP APPOINTMENTS: -PCP, Dr. Montoya, within 1-2 weeks -[facility] to draw BMP and liver panel in 1 week NEW OR CHANGED MEDICATIONS: None DISCONTINUED MEDICATIONS: None Procedures Performed: none Results and Findings: Laboratory Tests 08/21/16 08/21/16 08/21/16 19:17 19:17 22:12 WBC 6.9 Hgb 10.6 L Plt Count 154 PT INR (Anticoag Therapy) PTT ([place]) Creatinine 3.23 H Total Bilirubin 0.4 Direct Bilirubin Indirect Bilirubin GGT AST 92 H ALT 69 H Alkaline Phosphatase 134 Troponin I Less than 0.017 B-Natriuretic Peptide 767 H Total Protein Albumin Amylase 36 Lipase 103 Acetaminophen 08/22/16 08/22/16 08/23/16 04:51 04:51 04:55 WBC 5.0 D Hgb 11.2 L Plt Count 132 L PT INR (Anticoag Therapy) PTT ([place]) Creatinine Total Bilirubin 1.8 H Direct Bilirubin Indirect Bilirubin GGT AST 170 H ALT 748 H Alkaline Phosphatase 308 H Troponin I B-Natriuretic Peptide Total Protein Albumin Amylase Lipase 89 Acetaminophen 08/23/16 08/23/16 08/23/16 04:55 13:20 13:20 WBC Hgb Plt Count PT 11.8 H INR (Anticoag Therapy) 1.13 H PTT ([place]) 28.2 Creatinine Total Bilirubin 1.7 H 1.0 Direct Bilirubin 1.1 H 0.7 H Indirect Bilirubin 0.6 0.3 GGT 440 H AST 628 H 431 H ALT 916 H 749 H Alkaline Phosphatase 482 H 445 H Troponin I B-Natriuretic Peptide Total Protein Albumin Amylase Lipase Acetaminophen Less than 0.2 L 08/24/16 06:52 WBC Hgb Plt Count PT INR (Anticoag Therapy) PTT ([place]) Creatinine 3.19 H Total Bilirubin 0.7 Direct Bilirubin 0.3 Indirect Bilirubin 0.4 GGT AST 254 H ALT 597 H Alkaline Phosphatase 433 H Troponin I B-Natriuretic Peptide Total Protein 6.1 L Albumin 2.7 L Amylase Lipase Acetaminophen Discharge Disposition: Home with HHC Disposition: Home self-care Condition: Stable Discharge Activity: Activity as tolerated Discharge Diet: Consistent carbs, Low salt, Low fat/chol Referrals: Katiuska Montoya DO [Primary Care Provider] - Additional Patient Instructions (free text): Pt has home health with [facility] [place]. Please call [phone] the nurse latex ribbon machine operator if pt goes home, and fax discharge information to [phone]. -Please resume HHC at discharge. Resume cares patient was receiving prior to admission. -Follow-up with Dr. Montoya within 1-2 weeks -Check BMP and liver panel in 1 week. Please have home health care draw these labs in 1 week. Complete Home Medications List: Complete Home Medication List: Albuterol Sulfate/Ipratropium [Duoneb 2.5-0.5MG/3ML Soln] 3 ml IH QID PRN Allopurinol [Zyloprim] 200 mg PO QAM 05/05/16 Aspirin [Aspirin Enteric Coated] 325 mg PO QAM 05/05/16 Cholecalciferol (Vitamin D3) [Vitamin D3] 2,000 unit PO QAM 05/05/16 Ezetimibe [Zetia] 10 mg PO QAM 05/05/16 Famotidine 20 mg PO BID 05/05/16 Insul NPH Hu Rec/Ins Rg Hu Rec [Novolin 70/30] 40 units SQ QAM 05/05/16 Insul NPH Hu Rec/Ins Rg Hu Rec [Novolin 70/30] 40 units SQ QPM 05/05/16 Lisinopril [Zestril] 40 mg PO QPM 05/05/16 Metoprolol Tartrate [Lopressor] 200 mg PO BID 05/05/16 Multivitamins [Multivitamin Rika] 1 cap PO QAM 05/05/16 Ranitidine HCl [Zantac] 150 mg PO BID 05/05/16 buPROPion HCL [Wellbutrin Xl] 150 mg PO QAM 05/05/16 guaiFENesin [Mucinex] 600 mg PO BID PRN 05/05/16 Furosemide [Lasix] 80 mg PO QAM 08/22/16 Amb Orders for Discharge: Basic Metabolic Panel Time Frame: 1 Week, Facility: [facility] , Location: Home Health Care Liver Panel Time Frame: 1 Week, Facility: [facility], Location : [facility]
[2016-08-27 22:16] LABS: Hepatitis C Antibody NON-REACTIVE (NON-REACTIVE); Hepatitis Panel Confirmation DNR
[2016-08-28 03:03] LABS: Hepatitis A IgM Antibody NON-REACTIVE (NON-REACTIVE); Hepatitis B Surface Antigen NON-REACTIVE (NON-REACTIVE); Smooth Muscle Antibody NEGATIVE (NEGATIVE)
== END 2016-08-24 13:28 | disposition home health service (06) | DRG 446 ==
LOC: ER 17:50 → UNDOADMOB 20:02 → MS 20:02 → OBSVTOIN 08-22 07:14
PROVIDERS: ADMIT Nurse Practitioner Gerontology; ATTEND Internal Medicine
DX: K80.50 Calculus of bile duct without cholangitis or cholecystitis without obstruction (principal); I50.9 Heart failure, unspecified; J44.9 Chronic obstructive pulmonary disease, unspecified; K21.9 Gastro-esophageal reflux disease without esophagitis; I10 Essential (primary) hypertension; E11.29 Type 2 diabetes mellitus with other diabetic kidney complication; R80.9 Proteinuria, unspecified; G47.33 Obstructive sleep apnea (adult) (pediatric); Z79.4 Long term (current) use of insulin; Z79.82 Long term (current) use of aspirin
CPT/HCPCS: 36415; 71020; 76705; 80048; 80053; 80074; 80076; 82150; 82390; 82977; 83690; 83880; 83915; 84484; 85025; 85610; 85730; 86255; 86376; 87081; 93005; 99284; G0378; G0480

== ENCOUNTER 2016-10-17 17:15 | Emergency (ER) | payer MEDICARE, OTHER ==
[2016-10-17] MEDS ORDERED: LIDOCAINE HCL 20 ML UDC PO ONE (17:22)
[2016-10-17] MEDS ORDERED: NORMAL SALINE 1,000 ML IV PRN (17:22)
[2016-10-17] MEDS ORDERED: MAG HYDROX/ALUMINUM HYD/SIMETH 30 ML UDC PO ONE (17:22)
[2016-10-17] MEDS ORDERED: BELLADONNA ALKALOIDS/PHENOBARB 60 ML BTL PO ONE (17:22)
[2016-10-17] MEDS ORDERED: PROMETHAZINE HCL 25 MG in DEXTROSE 5 % IN WATER 50 ML IV ONE ×2 (17:22)
[2016-10-17] MEDS ORDERED: PANTOPRAZOLE SODIUM 40 MG in NORMAL SALINE 100 ML IV ONE (17:22)
[2016-10-17] MEDS ORDERED: HYDROmorphone HCL 1 MG/ML DISP.SYRIN IV ONE (17:22)
--- OUTSIDE RECORDS SUMMARY | 2016-10-17 17:25 | XMS REPORT | CCD ---
:1960 Author Name JUAN ANTONIO CHEUNG Address [address] [facility] [address] Care Team Providers Name Role Phone ARASELI WHEELER Attending Physician Unavailable ARASELI WHEELER Er Physician 1 Unavailable Allergies Allergy Code Allergy Type Reaction Status No Known Drug Allergies 0 Drug allergy Active Active Medications Medication Code Dose Units Frequency Route Modification Start Date/Time Tri-Cream 0 1 APPLICATIONS TWICE A DAY TOPICALLY 01/12/2016 (Silvadene/Tri 13:27 amcinolone, Clotrimazole)1 Prescription Detail APPLY 1 APPLICATIONS TOPICALLY TWICE A DAY to lower extremities. amLODIPine Besylate 5MG Oral [id number] 10 MILLIGRAMS DAILY ORAL 2015 13:24 Tablet Prescription Detail TAKE 10 MILLIGRAMS ORAL DAILY Acetaminophen-Codeine Phosphate 751492 1-2 EACH EVERY 6 HOURS ORAL 13:23 300MG-30MG Oral Tablet Prescription Detail TAKE 1-2 EACH ORAL EVERY 6 HOURS Allopurinol 100MG Oral Tablet [id number] 200 MILLIGRAMS DAILY ORAL 2015 13:23 Prescription Detail TAKE 200 MILLIGRAMS ORAL DAILY buPROPion HCl 150MG Oral Tablet, [id number] 150 MILLIGRAMS DAILY ORAL 01/11 13:23 Extended Release Prescription Detail TAKE 150 MILLIGRAMS ORAL DAILY Duoneb 3MG/3ML-0.5MG/3ML 1997849 1 EACH Every 4-6hr INHALATION 2015 13:23 Inhalation Solution PRN Prescription Detail 1 EACH INHALATION Every 4-6hr PRN Famotidine 20MG Oral Tablet [id number] 20 MILLIGRAMS TWICE A DAY ORAL 01/11 13:23 Prescription Detail TAKE 20 MILLIGRAMS ORAL TWICE A DAY Furosemide 40MG Oral Tablet [id number] 40 MILLIGRAMS TWICE A DAY ORAL 01/11 13:23 Prescription Detail TAKE 40 MILLIGRAMS ORAL TWICE A DAY Lisinopril 40MG Oral Tablet [id number] 40 MILLIGRAMS DAILY ORAL 01/12/2016 13:23 Prescription Detail TAKE 40 MILLIGRAMS ORAL DAILY Metoprolol Succinate 100MG [id number] 200 MILLIGRAMS DAILY ORAL 2015 13:23 Oral Tablet, Extended Release Prescription Detail TAKE 200 MILLIGRAMS ORAL DAILY NovoLIN 70/30 70U-30U/1ML 081817 65 UNITS TWICE A DAY SUBCUTANEOUS 13:23 Subcutaneous Suspension Prescription Detail 65 UNITS SUBCUTANEOUS TWICE A DAY Nystatin 650999B/1GM 220544 1 EACH TWICE A DAY TOPICAL APPLICATION 13:23 Topical application Ointment Prescription Detail 1 EACH TOPICAL APPLICATION TWICE A DAY Pantoprazole Sodium 40MG Oral [id number] 40 MILLIGRAMS DAILY BY MOUTH 01/11 13:23 Tablet, Enteric Coated Prescription Detail TAKE 40 MILLIGRAMS BY MOUTH DAILY Penicillin V Potassium 968605 500 MILLIGRAMS EVERY 8 HOURS ORAL 2015 13:23 500MG Oral Tablet Prescription Detail TAKE 500 MILLIGRAMS ORAL EVERY 8 HOURS Zetia 10MG Oral Tablet 135806 10 MILLIGRAMS DAILY ORAL 01/12/2016 13:23 Prescription Detail TAKE 10 MILLIGRAMS ORAL DAILY Problems Problem Code Start Date Resolved Date Status Hypoglycemia 938496132 01/11/2016 Active Other chest pain 66253876 01/11/2016 Active Type II diabetes 71570219 01/11/2016 Active Hypertension 74764877 01/11/2016 Active Procedures Unknown or Not Available. Results Unknown or Not Available. Encounters Encounter Diagnosis Diagnosis Code Start Date Dental caries, unspecified K029 12/28/2015 Function Status Unknown or Not Available. History of Immunizations Immunization Code Date Influenza, seasonal, injectable, preservative free 140 05/22/2010 no vaccine administered 998 1960 Plan of Treatment Unknown or Not Available. Social History Smoking Status Code Start Date End Date Never smoker [id number] Vital Signs Unknown or Not Available. Function Status Unknown or Not Available. Goals Unknown or Not Available. ASSESSMENTS Unknown or Not Available. Health Concerns Section Unknown or Not Available.
--- OUTSIDE RECORDS SUMMARY | 2016-10-17 17:25 | XMS REPORT | Continuity of Care Document ---
:1960 Author Organization [facility] ([facility]) Address [address] [place] [address] Phone [phone] Care Team Providers Name Role Phone Katiuska Montoya Primary Care Provider [phone] Source Comments This disclosure is being made pursuant to the Care Everywhere program, applicable federal and state laws, and may not contain all informaitonavailable regarding this patient.[facility] ([facility]) Active Allergies and Adverse Reactions No Known Allergies Current Medications Prescription Sig. Disp. Refills Start End Date Status Date acetaminophen 500 mg Take 1,000 mg by Active tablet mouth every 6 hours as needed. docusate 100 mg tablet Take 100 mg by Active mouth 2 times daily as needed. niacin 500 mg XR tablet Take 500 mg by Active mouth at bedtime. NEOMY apply topically Active SULF/BACITRA/POLYMYXIN B as needed. (TRIPLE ANTIBIOTIC EX) ALBUTEROL SULFATE INH Use by inhalation Active as needed. aspirin 325 mg EC tablet Take 325 mg by Active mouth daily. allopurinol 100 mg Take 200 mg by Active tablet mouth daily. buPROPion (WELLBUTRIN Take 150 mg by Active XL) 150 mg extended mouth Every release tablet 24 hour morning. BENEFIBER, GUAR GUM, PO Take by mouth Active daily. 1 tsp daily omega-3 fatty Take 2,000 mg by Active acids-vitamin E (FISH mouth daily. OIL) 1,000 mg capsule lisinopril 40 mg tablet Take 40 mg by Active mouth 2 times daily. amLODIPine 5 mg tablet Take 10 mg by Active mouth daily. omeprazole 40 mg Take 40 mg by Active extended release capsule mouth daily as needed. hydrochlorothiazide 25 Take 25 mg by Active mg tablet mouth daily. insulin nph-regular inject 45 Units Active (NOVOLIN 70/30) 100 subcutaneously 2 unit/mL injection vial times daily before meals. furosemide (LASIX) 20 mg Take 60 mg by Active tablet mouth daily. cholecalciferol (VITAMIN Take 1,000 Units Active D3) 1,000 unit capsule by mouth daily. famotidine 20 mg tablet Take 20 mg by Active mouth 2 times daily. metoPROLol succinate 100 Take 100 mg by Active mg XL tablet mouth daily. amoxicillin 500 mg Take 4 capsules 4 capsule 0 Active capsule (2,000 mg total) 6 by mouth 1 hour prior to surgery. chlorhexidine 0.12 % Rinse with 10 ML 473 mL 0 Active oral rinse for 30 seconds 6 twice daily for 10 days. Swish and spit out excess. Nothing by mouth for 30 minutes. HYDROcodone-acetaminophe Take 1 tablet by 20 tablet 0 Active n 5-325 mg per tablet mouth every 4 6 hours as needed for Pain. DO NOT EXCEED 3,000 MG ACETAMINOPHEN PER DAY FROM ALL SOURCES hydrALAZINE 10 mg tablet Take 25 mg by Active mouth 3 times daily. raNITIdine 150 mg tablet Take 150 mg by Active mouth 2 times daily. ezetimibe 10 mg tablet Take 10 mg by Active mouth daily. acetaminophen-codeine Take 1 tablet by Active 300-30 mg per tablet mouth every 6 hours as needed. patiromer (VELTASSA) 8.4 Take 8.4 g by Active gram packet mouth daily. Mix as directed prior to administration ursodiol 300 mg capsule Take 1 capsule 60 capsule 5 Active (300 mg total) by 7 mouth 2 times daily. guaiFENesin 600 mg XR Take 1,200 mg by Active tablet mouth 2 times daily. mupirocin 2 % cream Apply topically 2 Active times daily. clindamycin 300 mg Take 300 mg by Active capsule mouth 4 times daily. Active Problems Problem Noted Date Calculus of gallbladder without cholecystitis 09/14/2016 Dental caries 01/27/2016 Obesity 01/09/2013 Fatty liver 01/09/2013 Most Recent Encounters Date Type Specialty Providers Description 09/21/2016 Hospital Encounter Acute Care Surgery Jorge, Dx: Calculus of MD Bubba gallbladder without cholecystitis without obstruction (Primary Dx) 09/14/2016 Hospital Encounter Acute Care Surgery Default, Other Dx: Calculus of Billg - Defo gallbladder without Jorge, cholecystitis without MD Bubba obstruction (Primary Dx) Social History Tobacco Use Types Packs/Day Years Used Date Never Smoker Smokeless Tobacco: Never Used Tobacco Cessation:Counseling Given: Yes Comments: Alcohol Use Drinks/Week oz/Week Comments No Last Filed Vital Signs Vital Sign Reading Time Taken Blood Pressure 178/79 09/21/2016 10:57 AM TRAVEL AGENCY MANAGER Pulse 52 09/21/2016 10:57 AM TRAVEL AGENCY MANAGER Temperature 36 C (96.8 F) 09/21/2016 10:57 AM TRAVEL AGENCY MANAGER Respiratory Rate - - Height 1.727 m (5' 7.99") 09/21/2016 10:58 AM TRAVEL AGENCY MANAGER Weight 186.35 kg (410 lb 13.2 oz) 09/21/2016 10:57 AM TRAVEL AGENCY MANAGER Body Mass Index 62.48 09/21/2016 10:57 AM TRAVEL AGENCY MANAGER Oxygen Saturation - - Plan of Care Date Type Specialty Providers Description 12/28/2016 Appointment Acute Care Surgery Rickey Schreiber MD Chief Comp: Patient [address] [place] [address] Visit [phone] (Fax) Health Maintenance Due Date Last Done Comments HCV Screening 1960 Hepatitis B Vaccine (1 of 3 - Primary Series) 1960 Tdap Vaccine 1973 DIABETIC: Cholesterol 1980 Diabetic: Hdl 1980 Diabetic: Ldl 1980 DIABETIC: Microalbumin 1980 DIABETIC: Triglycerides 1980 MMR Vaccine 1980 Td Vaccine 1980 Pneumococcal Vaccine (1 of 1 - PPSV23) 1981 Colonoscopy 03/30/2012 Prostate Cancer Screening 2012 Influenza Vaccine: Seasonal (#1) 02/17/2016 DIABETIC: Foot Exam 09/14/2016 DIABETIC: Retinal Eye Exam 09/14/2016 DIABETIC: Hemoglobin A1C 03/14/2017 09/14/2016 Results from Last 3 Months DIFFERENTIAL (09/14/2016 3:40 PM) Component Value Range % Neutrophils-Auto Diff 59.7 % Neutrophils-Auto Diff 4200 1513-7053 /MM3 % Lymphocytes-Auto Diff 26.2 % Lymphocytes-Auto Diff 3500 832-9185 /MM3 % Monocytes-Auto Diff 8.3 % Monocytes-Auto Diff 580 130-860 /MM3 % Eosinophils-Auto Diff 4.7 % Eosinophils-Auto Diff 330 40-390 /MM3 % Basophils 0.7 % Basophils-Auto Diff 50 10-136 /MM3 % Immature Granulocytes-Auto Diff 0.4 % Immature Granulocytes-Auto Diff 30 /MM3 Specimen Whole Blood CBC (COMPLETE BLOOD COUNT) (09/14/2016 3:40 PM) Component Value Range WBC Count 7.0 3.7-10.5 K/MM3 RBC Count 3.85(L) 4.50-6.20 M/MM3 Hemoglobin 11.5(L) 13.2-17.7 g/dL Hematocrit 35(L) 40-52 % MCV (Mean Corpuscular Volume) 91 82-99 FL MCH (Mean Corpuscular Hemoglobin) 30 25-35 PG MCHC (Mean Corpuscular Hemoglobin Concentration) 33 32-36 % Platelet Count 177 150-400 K/MM3 MPV (Mean Platelet Volume) 11.8 9.4-12.3 FL RBC Dist Width-STD 47.8(H) 35.1-43.9 FL RBC Distrib Width 14.4 9.0-14.5 % Nucleated RBC 0 /100 WBC Specimen Whole Blood HEMOGLOBIN A1C (09/14/2016 3:40 PM) Component Value Range Hemoglobin A1c 6.7(H)Comment: 4.8-6.0 % Glycemic Control Guidelines: Non-diabetic <6% Goal <7% Therapeutic Action >8% Estimated Average Glucose 146Comment: mg/dL The estimated average glucose (eAG) calculated from the HbA1c changed on 07/03.See Laboratory Bulletins in the Department of Pathology Laboratory Services Handbook for a full discussion.Not e that the new calculated glucose will now be lower.The A1c result is unchanged. Specimen Whole Blood CBC WITH DIFFERENTIAL (09/14/2016 3:40 PM) Specimen Whole Blood Narrative The following orders were created for panel order CBC WITH DIFFERENTIAL. Procedure Abnormality Status --------- ------ CBC (COMPLETE BLOOD COUNT)[[id number]] AbnormalFinal result DIFFERENTIAL[[id number]] Final result Please view results for these tests on the individual orders. LIVER PANEL (09/14/2016 3:40 PM) Component Value Range Bilirubin Total 0.5 <=1.2 mg/dL AST 23Comment: 0-40 U/L Adult reference ranges updated on 06/13/13 at 830am ALT 40Comment: 0-41 U/L The upper limit of normal for alanine aminotransferase (ALT) reference ranges for adults is controversial with some authorities recommending limit as low as 30 U/L for males and 19 U/L for females. Th ere is increased incidence of subclinical liver disease (e.g., early steatohepatitis) in patients with ALT values in the range of 31-41 U/L for males and 20-33 U/L for females. ALT values should alway s be interpreted in conjunction with clinical history, physical examination findings, and, if applicable, data from other diagnostic tests. ALP 216(H) 40-129 U/L GGT 221(H) 8-61 U/L Albumin 3.6 3.4-4.8 g/dL Total Protein 7.4 6.0-8.0 g/dL Specimen Blood BASIC METABOLIC PANEL W/ CALCIUM (CHEM 8) (09/14/2016 3:40 PM) Component Value Range Sodium 135 135-145 mEq/L Potassium 5.2(H) 3.5-5.0 mEq/L Chloride 97 95-107 mEq/L CO2 21(L) 22-29 mEq/L Anion Gap 17 8-18 mEq/L BUN 60(H) 10-20 mg/dL Creatinine 3.2(H)Comment: 0.6-1.2 mg/dL Creatinine switched to enzymatic method on 11/25/2010.GFR equation switched to IDMS-traceable MDRD equation on 11/25/2010. Calculated GFR values are not valid in clinical settings where serum creatinine is changing. Glucose 86Comment: 65-99 mg/dL The Expert Committee on the Diagnosis and Classification of Diabetes has defined impaired fasting glucose as greater than or equal to 100 mg/dL but less than 126 mg/dL.(Diabetes Care 28 (Suppl 1)S41,2005) Calcium 9.4 8.5-10.5 mg/dL Calculated GFR 20(L) >60 mL/min/1.73 m2 Specimen Blood
--- NOTE | 2016-10-17 17:41 | ERNOTE ---
Abdominal HPI - Narrative Date of Service: 10/17/16 - General Chief Complaint: Abdominal Pain Time Seen by Provider: 10/17/16 17:20 Source: patient, EMS Exam Limitations: no limitations - Immun/Allergies/Home Medications Immunizatons: IMMUNIZATION HX Immunizations Up to Date Yes History of Influenza Vaccine No Hx Pneumococcal Vaccination No Allergies/Adverse Reactions: Allergies No Known Allergies Allergy (Verified 08/10/16 15:37) Home Medications: HOME MEDICATIONS Albuterol Sulfate/Ipratropium [Duoneb 2.5-0.5MG/3ML Soln] 3 ml IH QID PRN [Last Taken Unknown] Allopurinol [Zyloprim] 200 mg PO QAM 05/05/16 [Last Taken Unknown] Aspirin [Aspirin Enteric Coated] 325 mg PO QAM 05/05/16 [Last Taken Unknown] Cholecalciferol (Vitamin D3) [Vitamin D3] 2,000 unit PO QAM 05/05/16 [Last Taken Unknown] Ezetimibe [Zetia] 10 mg PO QAM 05/05/16 [Last Taken Unknown] Famotidine 20 mg PO BID 05/05/16 [Last Taken Unknown] Insul NPH Hu Rec/Ins Rg Hu Rec [Novolin 70/30] 40 units SQ QAM 05/05/16 [Last Taken Unknown] Insul NPH Hu Rec/Ins Rg Hu Rec [Novolin 70/30] 40 units SQ QPM 05/05/16 [Last Taken Unknown] Lisinopril [Zestril] 40 mg PO QPM 05/05/16 [Last Taken Unknown] Metoprolol Tartrate [Lopressor] 200 mg PO BID 05/05/16 [Last Taken Unknown] Multivitamins [Multivitamin Rika] 1 cap PO QAM 05/05/16 [Last Taken Unknown] Ranitidine HCl [Zantac] 150 mg PO BID 05/05/16 [Last Taken Unknown] buPROPion HCL [Wellbutrin Xl] 150 mg PO QAM 05/05/16 [Last Taken Unknown] guaiFENesin [Mucinex] 600 mg PO BID PRN 05/05/16 [Last Taken Unknown] Furosemide [Lasix] 80 mg PO QAM 08/22/16 [Last Taken Unknown] - History of Present Illness Narrative: Developed epigastric pain about 2 hours prior to coming to the [facility] ER by ambulance. Constant, aching and severe. No radiation. No BM for two days. History of diabetes. Lives by himself. Timing: constant Quality: moderate, severe, aching Activities at Onset: none Modifying Factors - (Improves): Present: other - nothing Modifying Factors - (Worsens): Present: other - nothing Associated Symptoms: Present: denies symptoms Prior Treatment: Absent: currently on antibiotics Review of Systems - Review of Systems Constitutional: Present: no symptoms reported EYE: Present: no symptoms reported ENT: Present: no symptoms reported Respiratory: Present: no symptoms reported Cardiology: Present: no symptoms reported Gastrointestinal/Abdominal: Present: See HPI Genitourinary: Present: no symptoms reported Musculoskeletal: Present: no symptoms reported Skin: Present: no symptoms reported Neurological: Present: no symptoms reported Endocrine: Present: no symptoms reported Hematologic/Lymphatic: Present: no symptoms reported Psych: Present: no symptoms reported All Other Systems: All systems neg except as marked - Patient's Past Medical History Patient History - Medical: Diabetes Type 2, Depression, GERD, Obesity, Renal Disease Patient History - Cardiac/Respiratory: CHF, COPD, Hypertension, Hyperlipidemia, Sleep Apnea Patient History - Cancer: No Hx of Cancer Patient History - Surgical Procedures: Total Knee Replacement Patient History - Other: None - Family History Mother Family History - Medical: , Diabetes Type 2 Family History - Cardiac/Respiratory: CVA/Stroke, Myocardial Infarction Family History - Cancer: Other Father Family History - Medical: Family History - Cardiac/Respiratory: Coronary Heart Disease, Myocardial Infarction Family History - Cancer: No pertinent family hx Sister Family History - Medical: Diabetes Type 2 Insulin Dependent Family History - Cardiac/Respiratory: Other Brother Family History - Cardiac/Respiratory: Myocardial Infarction - Social History Living Situations: alone Abuse History: No History of abuse Psych History: Hx of Depression Does anyone smoke in the home?: No Smoking Status: Never smoker Alcohol Use: none Drug Use: none - Immunizations Immunizations Up to Date: Yes Hx Pneumococcal Vaccination: No History of Influenza Vaccine: No Physical Exam - Physical Exam General Appearance: Present: wd/wn, alert, mild distress, moderate distress, obese Eye Exam: Normal inspection: bilateral, PERRL: bilateral Ears, Nose, Throat: Present: normal ENT inspection Neck: Present: normal inspection, nontender Respiratory: Present: no respiratory distress, normal breath sounds Cardiovascular/Chest: Present: regular rate, rhythm, no murmur Gastrointestinal/Abdominal: Present: normal bowel sounds, nondistended, soft, no organomegaly, tenderness - epigastrium Back Exam: Present: normal inspection Extremity Exam: Present: normal inspection, extremity edema Neurological Exam: Present: alert, oriented Skin Exam: Present: normal color, warm/dry ED Progress - Results and Orders Patient's Lab Results:: I have reviewed the patient's lab results. - Vital Signs Patient's Vital Signs:: I have reviewed the patient's vital signs. Vital Signs: Vital Signs 10/17/16 17:23 Temperature 36.6 C Pulse Rate 57 L Respiratory 16 Rate Blood Pressure 146/50 O2 Sat by Pulse 96 Oximetry - Progress/Reassessment Chief Complaint: Abdominal Pain - Transfer of Care Physician Sign Out: Wilder Rouse Receiving Physician: Franc Charles Pending Results: CT/MRI results, Labs Departure - Departure Clinical Impression: Epigastric abdominal pain
[2016-10-17 17:51] LABS: Hematocrit 31.7 % (42.0-52.0); Hemoglobin 10.3 gm/dL (13.5-18.0); Mean Cell Volume 94.1 fl (78-100); Mean Corpuscular Hemoglobin 30.6 pg (27-31); Mean Corpuscular Hgb Conc 32.5 g/dl (32-36); Neutrophil # 5.1 K/mm3 (1.3-6.0); Neutrophil % 72.8 % (42-75.0); Platelet Count 162 K/mm3 (150-450); Red Blood Count 3.37 M/mm3 (4.7-6.0); Red Cell Distribution Width 13.9 % (11.5-14.0); White Blood Count 6.9 K/mm3 (4.0-10.5)
[2016-10-17 18:09] LABS: ALT 201 U/L (19-67); AST 315 U/L (0-48); Albumin * 2.9 gm/dl (3.4-5.0); Alkaline Phosphatase * 305 U/L (50-170); Amylase * 33 U/L (25-115); Anion Gap 16.1 mmol/L (6.8-13.8); Bilirubin, Total 0.8 mg/dL (0.0-1.1); Blood Urea Nitrogen 72 mg/dL (6-23); Ca. Corrected For Albumin 8.7 mg/dL (8.4-10.2); Calcium * 8.1 mg/dL (7.9-10.9); Carbon Dioxide 26.7 mmol/L (24-32.6); Chloride 102 mmol/L (97-106); Glucose * 129 mg/dL (70-110); Lipase 164 U/L (73-393); Potassium 4.8 mmol/L (3.4-4.6); Sodium 140 mmol/L (132-142); Total Protein 6.9 gm/dL (6.2-8.2); Troponin I Less than 0.017 ng/ml (0.00-0.10)
[2016-10-17 18:22] LABS: Urine Bilirubin Negative (NEGATIVE); Urine Blood Negative /ul (NEGATIVE); Urine Color Yellow; Urine Ketone Negative (NEGATIVE); Urine Protein >=300 mg/dL (NEGATIVE); Urine Specific Gravity 1.025 SP.GR. (1.005-1.030); Urine Urobilinogen Normal (NORMAL)
[2016-10-17 18:23] LABS: Urine Appearance Clear; Urine Bacteria None Seen; Urine Nitrite Negative (NEGATIVE); Urine RBC None Seen /hpf (0-5); Urine WBC 0-5 /hpf (0-5)
[2016-10-17] MEDS ORDERED: HYDROmorphone HCL 1 MG/ML DISP.SYRIN ONE (18:24)
[2016-10-17] MEDS ORDERED: PANTOPRAZOLE SODIUM 40 MG/100 ML PIGGYBACK IV ONE (18:24)
[2016-10-17] MEDS ORDERED: DIATRIZOATE MEGLU/DIATRIZO SOD 30 ML BTL ONE (18:38)
[2016-10-17] MEDS ORDERED: DIATRIZOATE MEGLU/DIATRIZO SOD 30 ML BTL PO ONE (18:40)
[2016-10-17 22:15] VITALS: BP 140/68
== END 2016-10-17 22:27 | disposition home or self-care (01) ==
LOC: ER 17:15
DX: R10.13 Epigastric pain (principal)

== ENCOUNTER 2016-11-03 16:51 | Emergency (ER) | payer MEDICARE, OTHER ==
[2016-11-03 16:56] VITALS: BP 188/71
[2016-11-03] MEDS ORDERED: WATER FOR INJECTION,STERILE 20 ML VIAL ONE (17:14)
--- NOTE | 2016-11-03 17:29 | ERNOTE ---
ENT HPI Presenting Symptoms: nosebleed Time Seen by Provider: 11/03/16 17:00 Source: patient Exam Limitations: no limitations - Immun/Allergies/Home Medications Immunizations: IMMUNIZATION HX Immunizations Up to Date Yes History of Influenza Vaccine No Hx Pneumococcal Vaccination No Allergies/Adverse Reactions: Allergies Allergy/AdvReac Type Severity Reaction Status Date / Time No Known Allergies Allergy Verified 11/03/16 16:56 Home Medications: HOME MEDICATIONS Albuterol Sulfate/Ipratropium [Duoneb 2.5-0.5MG/3ML Soln] 3 ml IH QID PRN [Last Taken Unknown] Allopurinol [Zyloprim] 200 mg PO QAM 05/05/16 [Last Taken Unknown] Aspirin [Aspirin Enteric Coated] 325 mg PO QAM 05/05/16 [Last Taken Unknown] Cholecalciferol (Vitamin D3) [Vitamin D3] 2,000 unit PO QAM 05/05/16 [Last Taken Unknown] Ezetimibe [Zetia] 10 mg PO QAM 05/05/16 [Last Taken Unknown] Famotidine 20 mg PO BID 05/05/16 [Last Taken Unknown] Insul NPH Hu Rec/Ins Rg Hu Rec [Novolin 70/30] 40 units SQ QAM 05/05/16 [Last Taken Unknown] Insul NPH Hu Rec/Ins Rg Hu Rec [Novolin 70/30] 40 units SQ QPM 05/05/16 [Last Taken Unknown] Lisinopril [Zestril] 40 mg PO QPM 05/05/16 [Last Taken Unknown] Metoprolol Tartrate [Lopressor] 200 mg PO BID 05/05/16 [Last Taken Unknown] Multivitamins [Multivitamin Rika] 1 cap PO QAM 05/05/16 [Last Taken Unknown] Ranitidine HCl [Zantac] 150 mg PO BID 05/05/16 [Last Taken Unknown] buPROPion HCL [Wellbutrin Xl] 150 mg PO QAM 05/05/16 [Last Taken Unknown] guaiFENesin [Mucinex] 600 mg PO BID PRN 05/05/16 [Last Taken Unknown] Furosemide [Lasix] 80 mg PO QAM 08/22/16 [Last Taken Unknown] - History of Present Illness Narrative: Patient was blowing his nose and started to have bleeding from his left nare that persisted for about 1 hour and a half, bleeding had stopped on arrival in the ER. He denies any other source of bleeding or bruising Date (Duration): 11/03/16 Time (Timing): 15:30 ENT Location: Present: nose Prearrival Treatment: Present: squeezing nostrils Associated Symptoms - ENT: Reports: denies symptoms Prior Treament: Denies: recently seen, similar symptoms before Review of Systems - Review of Systems Constitutional: Absent: recent illness, fever ENT: Absent: ear pain, nose pain, nose congestion, sore throat Respiratory: Absent: shortness of breath, cough Cardiology: Absent: chest pain Gastrointestinal/Abdominal: Absent: nausea, vomiting Skin: Present: no symptoms reported Neurological: Present: no symptoms reported. Absent: headache Hematologic/Lymphatic: Absent: easy bruising, easy bleeding - Patient's Past Medical History Patient History - Medical: Diabetes Type 2, Depression, GERD, Obesity, Renal Disease Patient History - Cardiac/Respiratory: CHF, COPD, Hypertension, Hyperlipidemia, Sleep Apnea Patient History - Cancer: No Hx of Cancer Patient History - Surgical Procedures: Total Knee Replacement Patient History - Other: None - Family History Mother Family History - Medical: , Diabetes Type 2 Family History - Cardiac/Respiratory: CVA/Stroke, Myocardial Infarction Family History - Cancer: Other Father Family History - Medical: Family History - Cardiac/Respiratory: Coronary Heart Disease, Myocardial Infarction Family History - Cancer: No pertinent family hx Sister Family History - Medical: Diabetes Type 2 Insulin Dependent Family History - Cardiac/Respiratory: Other Brother Family History - Cardiac/Respiratory: Myocardial Infarction - Social History Living Situations: alone Abuse History: No History of abuse Psych History: Hx of Depression Does anyone smoke in the home?: No Smoking Status: Never smoker Alcohol Use: none Drug Use: none - Immunizations Immunizations Up to Date: Yes Hx Pneumococcal Vaccination: No History of Influenza Vaccine: No Physical Exam - Physical Exam General Appearance: Present: wd/wn, alert, no apparent distress, anxious, obese Eye Exam: Normal inspection: bilateral, PERRL: bilateral Ears, Nose, Throat: Present: other - bleeding from left nare, no obvious source of bleeding, no bleeding on right side Respiratory: Present: no respiratory distress, normal breath sounds, no accessory muscle use, lungs clear Cardiovascular/Chest: Present: regular rate, rhythm, no murmur Gastrointestinal/Abdominal: Present: nontender, nondistended, soft Extremity Exam: Present: normal except - - chronic stasis dermatitis Neurological Exam: Present: alert, oriented, normal mood/affect Skin Exam: Present: normal color, warm/dry ED Progress - Vital Signs Patient's Vital Signs:: I have reviewed the patient's vital signs. Vital Signs: Vital Signs 11/03/16 16:52 Temperature 37.3 C Pulse Rate 67 Respiratory 16 Rate Blood Pressure 188/71 O2 Sat by Pulse 88 L Oximetry - Progress/Reassessment Chief Complaint: Nose Bleed Progress Note-Subjective: 11/03/16 17:20 bleeding again from left nare rapid rhino place 7.5cm, inflated to 7ml 11/03/16 17:41 no bleeding, will discharge patient Departure Clinical Impression: Nasal bleeding - Departure Disposition: Home self-care Condition: Good Instructions: Nosebleed, [id number] Additional Instructions: call your doctor for follow up have the nasal packing removed in two days Referrals: Katiuska Montoya DO [Staff Physician] -
--- OUTSIDE RECORDS SUMMARY | 2016-11-03 17:38 | XMS REPORT | Continuity of Care Document ---
:1960 Author Organization [facility] ([facility]) Address [address] [place] [address] Phone [phone] Care Team Providers Name Role Phone Katiuska Montoya Primary Care Provider [phone] Source Comments This disclosure is being made pursuant to the Care Everywhere program, applicable federal and state laws, and may not contain all informaitonavailable regarding this patient.[facility] ([facility]) Active Allergies and Adverse Reactions No Known [...] Taken Blood Pressure 178/79 09/21/2016 10:57 AM MATTRESS FINISHER Pulse 52 09/21/2016 10:57 AM MATTRESS FINISHER Temperature 36 C (96.8 F) 09/21/2016 10:57 AM MATTRESS FINISHER Respiratory Rate - - Height 1.727 m (5' 7.99") 09/21/2016 10:58 AM MATTRESS FINISHER Weight 186.35 kg (410 lb 13.2 oz) 09/21/2016 10:57 AM MATTRESS FINISHER Body Mass Index 62.48 09/21/2016 10:57 AM MATTRESS FINISHER Oxygen Saturation - - Plan of Care Date Type Specialty Providers Description 11/04/2016 Appointment Heart and Vascular Sheri Vegas, Dx: Pre-op evaluation DO (Primary Dx) [address] [place] [address] [phone] (Fax) 12/28/2016 Appointment Acute Care Surgery Rickey Schreiber MD Chief Comp: Patient [address] [place] [place] [address] Visit [phone] (Fax) Health Maintenance Due Date Last Done Comments HCV Screening 1960 Hepatitis B Vaccine (1 of 3 - Primary Series) 1960 Tdap Vaccine 1973 DIABETIC: Cholesterol 1980 Diabetic: Hdl 1980 Diabetic: Ldl 1980 DIABETIC: Microalbumin 1980 DIABETIC: Triglycerides 1980 MMR Vaccine 1980 Td Vaccine 1980 Pneumococcal Vaccine (1 of 1 - PPSV23) 1981 Colonoscopy 03/30/2012 Prostate Cancer Screening 2012 DIABETIC: Foot Exam 09/14/2016 DIABETIC: Retinal Eye Exam 09/14/2016 Influenza Vaccine: Seasonal (Season Ended) 2017 DIABETIC: Hemoglobin A1C 03/14/2017 09/14/2016 Results from Last 3 Months DIFFERENTIAL (09/14/2016 3:40 PM) Component Value Range % Neutrophils-Auto Diff 59.7 % Neutrophils-Auto Diff 4200 [id number] /MM3 % Lymphocytes-Auto Diff 26.2 % Lymphocytes-Auto Diff 7770 [id number] /MM3 % Monocytes-Auto Diff 8.3 % Monocytes-Auto [...] Abnormality Status --------- ------ CBC (COMPLETE BLOOD COUNT)[[id number]] AbnormalFinal result DIFFERENTIAL[[id number]] Final result Please view results for these [...]
== END 2016-11-03 17:52 | disposition home or self-care (01) ==
LOC: ER 16:51
PROC: 2Y41X5Z Packing of Nasal Region using Packing Material (ICD-10-PCS; principal; 2016-11-03)
DX: R04.0 Epistaxis (principal)

== ENCOUNTER 2017-05-17 17:28 | Emergency (ER) | payer MEDICARE, OTHER ==
[2017-05-17 17:35] VITALS: BP 152/98
--- NOTE | 2017-05-17 18:24 | ERNOTE ---
Lower Extremity HPI - General Lower Extremities Pain: leg: bilateral Time Seen by Provider: 05/17/17 18:10 Source: patient Exam Limitations: no limitations - Immun/Allergies/Home Medications Immunizations: IMMUNIZATION HX Immunizations Up to Date Yes History of Influenza Vaccine No Hx Pneumococcal Vaccination No Allergies/Adverse Reactions: Allergies Allergy/AdvReac Type Severity Reaction Status Date / Time No Known Allergies Allergy Verified 05/17/17 17:35 Home Medications: HOME MEDICATIONS Albuterol Sulfate/Ipratropium [Duoneb 2.5-0.5MG/3ML Soln] 3 ml IH QID PRN [Last Taken Unknown] Allopurinol [Zyloprim] 200 mg PO QAM 05/05/16 [Last Taken Unknown] Aspirin [Aspirin Enteric Coated] 325 mg PO QAM 05/05/16 [Last Taken Unknown] Cholecalciferol (Vitamin D3) [Vitamin D3] 2,000 unit PO QAM 05/05/16 [Last Taken Unknown] Ezetimibe [Zetia] 10 mg PO QAM 05/05/16 [Last Taken Unknown] Famotidine 20 mg PO BID 05/05/16 [Last Taken Unknown] Insul NPH Hu Rec/Ins Rg Hu Rec [Novolin 70/30] 40 units SQ BID 05/05/16 [Last Taken Unknown] Metoprolol Tartrate [Lopressor] 200 mg PO BID 05/05/16 [Last Taken Unknown] Multivitamins [Multivitamin Rika] 1 cap PO QAM 05/05/16 [Last Taken Unknown] Ranitidine HCl [Zantac] 150 mg PO BID 05/05/16 [Last Taken Unknown] buPROPion HCL [Wellbutrin Xl] 300 mg PO QAM 05/05/16 [Last Taken Unknown] guaiFENesin [Mucinex] 600 mg PO BID PRN 05/05/16 [Last Taken Unknown] Acetaminophen 1,000 mg PO Q8H PRN 05/06/17 [Last Taken Unknown] Albuterol Sulfate [Proair Respiclick] 2 puff IH Q4H PRN 05/06/17 [Last Taken Unknown] Amlodipine Besylate 10 mg PO DAILY 05/06/17 [Last Taken Unknown] Bumetanide 1 mg PO DAILY 05/06/17 [Last Taken Unknown] Cholecalciferol (Vitamin D3) [Vitamin D3] 50,000 unit PO 05/06/17 [Last Taken Unknown] Docusate Sodium 250 mg PO BID 05/06/17 [Last Taken Unknown] Magnesium Hydroxide [Milk Of Magnesia] 30 ml PO DAILY PRN 05/06/17 [Last Taken Unknown] Melatonin 3 mg PO HS 05/06/17 [Last Taken Unknown] Mupirocin Calcium [Mupirocin] 30 gm TP DAILY 05/06/17 [Last Taken Unknown] Nystatin [Mycostatin Powder] 15 gm TP BID 05/06/17 [Last Taken Unknown] Patiromer Calcium Sorbitex [Veltassa] 8.4 gm PO DAILY 05/06/17 [Last Taken Unknown] Polyethylene Glycol 3350 [Miralax] 17 gm PO DAILY PRN 05/06/17 [Last Taken Unknown] Ursodiol [Actigall] 300 mg PO BID 05/06/17 [Last Taken Unknown] hydrALAZINE HCL [Apresoline] 25 mg PO BID 05/06/17 [Last Taken Unknown] traMADol HCL [Tramadol HCl] 50 mg PO BID PRN 05/06/17 [Last Taken Unknown] - History of Present Illness Narrative: Patient states that he was called by Dr Combs office and told to come to the ER as he might need antibiotics. He has a history of chronic leg pain related to chronic stasis ulcers and is being followed at the wound clinic. He doesn't feel any different than any other day, pain is the same level, denies fever Review of Systems - Review of Systems Constitutional: Absent: recent illness, fever ENT: Absent: sore throat Respiratory: Absent: shortness of breath, cough Gastrointestinal/Abdominal: Absent: nausea, vomiting Genitourinary: Present: no symptoms reported Musculoskeletal: Present: See HPI Skin: Present: See HPI Neurological: Absent: headache - Patient's Past Medical History Patient History - Medical: Diabetes Type 2, Depression, GERD, Obesity, Renal Disease Patient History - Cardiac/Respiratory: CHF, COPD, Hypertension, Hyperlipidemia, Peripheral Vascular Disease, Sleep Apnea Patient History - Cancer: No Hx of Cancer Patient History - Surgical Procedures: Total Knee Replacement Patient History - Other: None - Family History Mother Family History - Medical: , Diabetes Type 2 Family History - Cardiac/Respiratory: CVA/Stroke, Myocardial Infarction Family History - Cancer: Other Father Family History - Medical: Family History - Cardiac/Respiratory: Coronary Heart Disease, Myocardial Infarction Family History - Cancer: No pertinent family hx Sister Family History - Medical: Diabetes Type 2 Insulin Dependent Family History - Cardiac/Respiratory: Other Brother Family History - Cardiac/Respiratory: Myocardial Infarction - Social History Living Situations: home Abuse History: No History of abuse Psych History: Hx of Depression Alcohol Use: none Drug Use: none - Immunizations Immunizations Up to Date: Yes Hx Pneumococcal Vaccination: No History of Influenza Vaccine: No Physical Exam - Physical Exam General Appearance: Present: wd/wn, alert, no apparent distress, obese Respiratory: Present: no respiratory distress, normal breath sounds, lungs clear Cardiovascular/Chest: Present: regular rate, rhythm, no murmur Extremity Exam: Present: other - large obese legs with chronic stasis dermatitis , mild erythema only, minimal clear drainage from left lateral leg ( no pus drainage) Neurological Exam: Present: alert, oriented, normal mood/affect Skin Exam: Present: normal color, warm/dry ED Progress - Results and Orders Patient's Lab Results:: I have reviewed the patient's lab results. - Vital Signs Patient's Vital Signs:: I have reviewed the patient's vital signs. Vital Signs: Vital Signs 05/17/17 17:29 Temperature 36.5 C Pulse Rate 60 Respiratory 12 Rate Blood Pressure 152/98 O2 Sat by Pulse 97 Oximetry - Progress/Reassessment Chief Complaint: Lower Extremity Pain/ Injury Progress Note-Subjective: 05/17/17 19:[address] results [address] Dr Montoya, patient has chronic stasis dermatitis, no indication of acute infection on exam or by lab test, will follow as outpatiet Departure Clinical Impression: Venous stasis dermatitis of both lower extremities - Departure Disposition: Home self-care Condition: Stable Instructions: Venous Stasis or Chronic Venous Insufficiency Additional Instructions: call Dr Montoya for follow up Referrals: Katiuska Montoya DO [Primary Care Provider] -
[2017-05-17 18:38] LABS: Hematocrit 29.2 % (42.0-52.0); Hemoglobin 9.3 gm/dL (13.5-18.0); Mean Cell Volume 93.3 fl (78-100); Mean Corpuscular Hemoglobin 29.7 pg (27-31); Mean Corpuscular Hgb Conc 31.8 g/dl (32-36); Mean Platelet Volume 10.6 fl (6.0-9.5); Neutrophil % 62.2 % (42-75.0); Platelet Count 155 K/mm3 (150-450); Red Blood Count 3.13 M/mm3 (4.7-6.0); Red Cell Distribution Width 14.9 % (11.5-14.0); White Blood Count 6.4 K/mm3 (4.0-10.5)
[2017-05-17 18:52] LABS: Albumin * 2.4 gm/dl (3.4-5.0); Anion Gap 13.9 mmol/L (6.8-13.8); BUN/Creatinine Ratio 17.1 (9.0-21.6); Bilirubin, Total 0.2 mg/dL (0.0-1.1); CRP 1.9 mg/dL (0.0-0.9); Ca. Corrected For Albumin 9.4 mg/dL (8.4-10.2); Calcium * 8.4 mg/dL (7.9-10.9); Potassium 4.9 mmol/L (3.4-4.6); Total Protein 7.3 gm/dL (6.2-8.2)
== END 2017-05-17 19:12 | disposition home or self-care (01) ==
LOC: ER 17:28
DX: I87.8 Other specified disorders of veins (principal)